=== PATIENT | male | born 1995 | race Two or more races ===

== ENCOUNTER 2023-11-05 20:38 | Emergency (ER) | payer MEDICAID ==
[~2023-11-05] VITALS: Ht 167.6 cm; Wt 59.1 kg
[2023-11-05 20:47] VITALS: BP 144/84; PULSE 65; RESP 17; TEMP 98.7
[2023-11-05 23:12] LABS: BASOPHILS % (AUTO) 0.3 % (0.0-2.0); EOSINOPHILS % (AUTO) 1.8 % (1.0-6.0); HEMATOCRIT 43.8 % (41-53); HEMOGLOBIN 15.1 g/dL (13.5-17.5); LYMPHOCYTES # (AUTO) 2.7 K/uL (1.0-4.8); LYMPHOCYTES % (AUTO) 30.1 % (22.0-44.0); MEAN CORPUSCULAR HGB CONC 34.4 G/dL (31.0-37.0); MEAN CORPUSCULAR VOLUME 87 fL (80-100); MONOCYTES # (AUTO) 0.7 K/uL (0.1-1.0); MONOCYTES % (AUTO) 7.8 % (2.0-9.0); NEUTROPHILS # (AUTO) 5.4 K/uL (1.8-7.7); PLATELET COUNT (AUTO) 254 K/uL (150-450); RED BLOOD CELL COUNT(AUTO) 5.02 MIL/uL (4.50-5.90); RED CELL DISTRIBUTION WIDTH 13.4 % (11.5-14.5)
[2023-11-05 23:30] LABS: ANION GAP 6 mmol/L (8-16); CALCIUM, TOTAL 9.3 mg/dL (8.8-10.5); CARBON DIOXIDE 30 mmol/L (22-29); CHLORIDE 102 mmol/L (98-107); GLOMERULAR FILTR. RATE CALC > 60 mL/min (>60); GLUCOSE,RANDOM 99 mg/dL (70-110); POTASSIUM 3.9 mmol/L (3.5-5.1); SODIUM SERUM 138 mmol/L (136-145); UREA NITROGEN, BLOOD 10 mg/dL (7-18)
[2023-11-05 23:33] LABS: TROPONIN I-HIGH SENSITIVITY 14 ng/L (<76)
[2023-11-05 23:54] LABS: ALANINE AMINOTRANSFERASE 42 U/L (12-78); ALKALINE PHOSPHATASE 95 U/L (46-116); ASPARTATE AMINOTRANSFERASE 29 U/L (15-37); BILIRUBIN,TOTAL 0.4 mg/dL (0.1-1.0); CREATINE KINASE, TOTAL ONLY 260 U/L (39-308); TOTAL PROTEIN, SERUM 7.7 g/dL (6.4-8.2)
[2023-11-05] MEDS ORDERED: OMEP20 PO (23:58)
[2023-11-06] MEDS: MAG HYDROX/ALUMINUM HYD/SIMETH 30 ML SUSPENSION UDCUP PO ONE (00:05)
[2023-11-06] MEDS: FAMOTIDINE 20 MG TABLET PO ONE (00:05)
[2023-11-06] MEDS: ACETAMINOPHEN 500 MG TABLET PO ONE (00:06)
== END 2023-11-06 00:55 | disposition home or self-care (01) ==
LOC: EMS 20:38
DX: R07.9 Chest pain, unspecified (principal); Z90.49 Acquired absence of other specified parts of digestive tract
CPT/HCPCS: 71045; 80053; 82550; 84484; 85025; 93005; 99281; 99285; 36415-L1; 36415-TC

== ENCOUNTER 2024-07-13 13:14 | Emergency (ER) | payer MEDICAID ==
[~2024-07-13] VITALS: Ht 157.5 cm; Wt 64.0 kg
[~2024-07-13 13:14] MED LIST: OMEP20 PO
[2024-07-13 14:22] VITALS: TEMP 98.5
[2024-07-13] MEDS: ACETAMINOPHEN 325 MG TABLET PO ONE (15:03)
[2024-07-13] MEDS ORDERED: ACET-2247 PO (17:22)
[2024-07-13] MEDS ORDERED: IBUP-1492 PO (17:22)
[2024-07-13 18:27] VITALS: BP 107/71; PULSE 68; RESP 18; O2SAT 98
== END 2024-07-13 18:48 | disposition home or self-care (01) ==
LOC: EMS 13:14
DX: S06.0XAA Concussion with loss of consciousness status unknown, initial encounter (principal); M54.2 Cervicalgia; Z90.49 Acquired absence of other specified parts of digestive tract; Z79.899 Other long term (current) drug therapy; W50.1XXA Accidental kick by another person, initial encounter; Y93.66 Activity, soccer; Y92.89 Other specified places as the place of occurrence of the external cause; Y99.8 Other external cause status
CPT/HCPCS: 70450; 72125; 99284